=== PATIENT | male | born 1950 | race Caucasian/White ===

== ENCOUNTER → 2019-10-09 | Outpatient (CLI) | payer MEDICARE ==
[2019-10-09 09:57] LABS: Basophils % (A) 1 %; Eosinophils # (A) 0.2 k/uL (0-0.7); Eosinophils % (A) 4 %; HCT 46.2 % (39.0-53.0); HGB 14.7 gm/dL (13.0-17.5); Lymphocytes % (A) 22 %; MCH 30.4 pg (25.0-35.0); MCHC 31.9 g/dL (31.0-37.0); MCV 95.5 fL (80.0-100.0); Mean Platelet Volume 7.6; Monocytes # (A) 0.3 k/uL (0-1.0); Monocytes % (A) 6 %; Neutrophils % (A) 66 %; Platelet Count 192 k/uL (150-450); RBC 4.84 m/uL (4.30-5.90); RDW 12.6 % (11.5-15.5); WBC 4.6 k/uL (3.8-10.6)
[2019-10-09 15:25] LABS: Non-African American GFR(CKD) 75.9 (60.0-200.0)
[2019-10-09 15:58] LABS: Hepatitis B Surface AB- Quant 3.5 mIU/mL; Hepatitis B Surface Antibody Non-Reactive (Non-Reactive); Hepatitis B Surface Antigen Non-Reactive (Non-Reactive)
== END | disposition home or self-care (01) ==
LOC: LABWHC1 09:26
PROVIDERS: ATTEND Dermatology MOHS-Micrographic Surgery
DX: L40.0 Psoriasis vulgaris (principal)
CPT/HCPCS: 36415; 82565; 84450; 84460; 85025; 86480; 86706; 87340

== ENCOUNTER → 2020-06-13 | Outpatient (CLI) | payer MEDICARE ==
[2020-06-14 03:50] LABS: Chol/HDL Ratio 3.53
== END | disposition home or self-care (01) ==
LOC: LABWHC1 14:18
PROVIDERS: ATTEND Internal Medicine Cardiovascular Disease
DX: E78.2 Mixed hyperlipidemia (principal)
CPT/HCPCS: 36415; 80061; 84450; 84460

== ENCOUNTER → 2021-06-22 | Outpatient (CLI) | payer MEDICARE ==
[2021-06-22 15:07] LABS: ALT 22 U/L (10-49); AST 15 U/L (14-35); Chol/HDL Ratio 3.87 Ratio; LDL Cholesterol,Calculated 75.8 mg/dL (0.0-131.0); VLDL Calculation 15.38 mg/dL (5.00-40.00)
== END | disposition home or self-care (01) ==
LOC: LABWHC1 08:27
PROVIDERS: ATTEND Internal Medicine Cardiovascular Disease
DX: E78.2 Mixed hyperlipidemia (principal)
CPT/HCPCS: 36415; 80061; 84450; 84460

== ENCOUNTER → 2021-11-29 | Outpatient (CLI) | payer MEDICARE ==
[2021-11-29 22:31] LABS: Basophils # (A) 0.02 X 10*3/uL (0.00-0.10); Basophils % (A) 0.4 %; Eosinophils # (A) 0.13 X 10*3/uL (0.04-0.35); Eosinophils % (A) 2.5 %; HCT 44.7 % (39.6-50.0); HGB 14.1 g/dL (13.0-17.0); Immature Grans, Automated 0.2 %; Lymphocytes # (A) 1.88 X 10*3/uL (0.90-5.00); Lymphocytes % (A) 36.6 %; MCHC 31.5 g/dL (32.0-37.0); MCV 98.2 fL (80.0-97.0); Mean Platelet Volume 10.4 fL (9.5-12.2); Monocytes # (A) 0.37 X 10*3/uL (0.20-1.00); Monocytes % (A) 7.2 %; NRBC Per 100 WBC 0 /100 WBCS (0.0-0.0); Neutrophils # (A) 2.73 X 10*3/uL (1.80-7.70); Neutrophils % (A) 53.1 %; Platelet Count 217 X 10*3/uL (140-440); RBC 4.55 X 10*6/uL (4.40-5.60); RDW 12.5 % (11.5-14.5); WBC 5.14 X 10*3/uL (4.50-10.00)
[2021-11-29 22:39] LABS: African American GFR (CKD) 89.9 (60.0-200.0); Blood Urea Nitrogen 17.1 mg/dL (9.0-27.0); Non-African American GFR(CKD) 77.6 (60.0-200.0)
== END | disposition home or self-care (01) ==
LOC: LABWHC1 15:44
PROVIDERS: ATTEND Physician Assistant Medical
DX: L40.0 Psoriasis vulgaris (principal)
CPT/HCPCS: 36415; 82565; 84450; 84460; 84520; 85025; 86480

== ENCOUNTER 2022-05-20 14:58 | Emergency (ER) | payer MEDICARE ==
[2022-05-20 15:38] VITALS: TEMP 96.9
[2022-05-20] MEDS ORDERED: LIDOCAINE 1% INJ 10MG/ML (30 ML VIAL-PF) SQ ONE (16:17)
[2022-05-20] MEDS ORDERED: DIPH,PERTUS(ACELL)TETVAC-LF 0.5 ML VIAL IM ONE (16:20)
--- NOTE | 2022-05-20 16:24 | ED ---
Wound/Laceration HPI - General Chief Complaint: Wound/Laceration Stated Complaint: left finger injury Time Seen by Provider: 05/20/22 16:05 Source: patient, RN notes reviewed Mode of arrival: ambulatory Limitations: no limitations - History of Present Illness Initial Comments: This is a [id number] 72-year-old male [facility] inadvertently cutting the distal aspect of his left little finger with a saw earlier this afternoon. Patient denying any significant pain. Denies any functional impairment. Last tetanus is unknown. Injury occurred about 2 hours prior to arrival. Other injuries. No distal paresthesias. No headache, no fever or chills, no changes in vision or hearing, no sore throat or difficulty with speech, no neck pain, no chest pain or shortness of breath, no abdominal pain, no nausea or vomiting, no changes in urination or bowel movements, no numbness or tingling, no extremity pain, no skin rashes or lesions. Past medical, surgical, social, and family history reviewed. - Related Data Allergies Allergy/AdvReac Type Severity Reaction Status Date / Time No Known Allergies Allergy Verified 05/20/22 15:38 Review of Systems ROS Statement: Those systems with pertinent positive or pertinent negative responses have been documented in the HPI. ROS Other: All systems not noted in ROS Statement are negative. Past Medical History Past Medical History: Myocardial Infarction (ID) Additional Past Medical History / Comment(s): HIGH BLOOD PRESSURE. HIGH CHOLESTROL. BLADDER CX History of Any Multi-Drug Resistant Organisms: None Reported Additional Past Surgical History / Comment(s): URINARY SURGERY. ILLEOSTOMY. CARDIAC Past Psychological History: No Psychological Hx Reported Smoking Status: Never smoker Past Alcohol Use History: None Reported Past Drug Use History: None Reported General Exam Limitations: no limitations General appearance: alert, in no apparent distress Head exam: Present: atraumatic, normocephalic, normal inspection Eye exam: Present: normal appearance, EOMI Neck exam: Present: normal inspection Respiratory exam: Present: normal lung sounds bilaterally. Absent: respiratory distress, wheezes, rales, rhonchi, stridor Cardiovascular Exam: Present: regular rate, normal rhythm, normal heart sounds. Absent: systolic murmur, diastolic murmur, rubs, gallop, clicks GI/Abdominal exam: Absent: tenderness Extremities exam: Present: full ROM, normal capillary refill, other (Patient has a small laceration to the flexor aspect of the distal left little finger. Full tendon function.). Absent: tenderness Left Hand Wrist exam: Present: laceration. Absent: tenderness, swelling, abrasion, crepitus, dislocation Neuro motor exam: Present: wrist extension intact, thumb opposition intact, thumb IP flexion intact, thumb adduction intact, fingers 2-5 abduction intact Back exam: Present: normal inspection, full ROM Neurological exam: Present: alert, oriented X3, CN II-XII intact. Absent: motor sensory deficit Psychiatric exam: Present: normal affect, normal mood Skin exam: Present: warm, dry, normal color. Absent: intact Course Vital Signs 05/20/22 15:34 Temperature 96.9 F L Pulse Rate 48 L Respiratory 20 Rate Blood Pressure 120/73 O2 Sat by Pulse 97 Oximetry Procedures - Laceration Laceration #1 Consent Obtained: verbal consent Indication: laceration Site: upper extremity (Left fifth finger) Size (cm): 3 Description: irregular Depth: simple, single layer Anesthetic Used: lidocaine 1% Anesthesia Technique: nerve block (Digital block) Amount (mls): 3 Pre-repair: wound explored, irrigated extensively, deep structures intact Type of Sutures: nylon Size of Sutures: 5-0 Number of Sutures: 5 Technique: simple, interrupted Medical Decision Making - Medical Decision Making Patient counseled on signs and symptoms of infection. Counseled on wound care. Counseled on return of all parameters. Voice understanding. Tetanus was updated. Patient was told to return to the ER for any signs or symptoms worsen. Told to return immediately if any other problems arise. All questions answered. Treatment plan discussed. Patient in agreement Every effort has been made to ensure accuracy of this dictation. However, due to the limitations of electronic medical records and dictation devices, errors in charting still occur. Supervising Dr. Waters - Radiology Data Radiology results: report reviewed, image reviewed Plain film x-ray of the left fifth finger interpreted by me reveals no evidence of fracture. No foreign body. No soft tissue change. Concur with radiology interpretation. Disposition Clinical Impression: Laceration of left little finger without damage to nail Disposition: HOME SELF-CARE Condition: Good Instructions (If sedation given, give patient instructions): Care For Your Stitches (ED), Laceration (ED) Additional Instructions: Wash the wound daily with warm soap and water. Apply thin layer of Neosporin or triple antibiotic ointment. Keep covered with a Band-Aid or sterile bandage. Suture removal in 10 days. Follow-up with your regular physician as directed. Return to the ER immediately if any symptoms worsen, new symptoms arise, or any other problems develop. Is patient prescribed a controlled substance at d/c from ED?: No Referrals: Jeramy Ny MD [Primary Care Provider] - 1-2 days Time of Disposition: 17:31
--- NOTE | 2022-05-20 16:47 | XR ---
EXAMINATION TYPE: XR finger LT DATE OF EXAM: 05/20/2022 COMPARISON: NONE HISTORY: Laceration TECHNIQUE: 3 views FINDINGS: There is some spurring at the IP joints of the little finger. There is no fracture nor disl ocation. No sizable foreign body. The soft tissue swelling anterior to the distal phalanx. IMPRESSION: Soft tissue swelling. No fracture seen.
[2022-05-20] MEDS ORDERED: BACITRACIN OINT 1 EACH PACKET TOPICAL ONE (17:30)
[2022-05-20 18:07] VITALS: BP 113/64; PULSE 51; RESP 15
== END 2022-05-20 18:07 | disposition home or self-care (01) ==
LOC: EC 14:58
DX: S61.217A Laceration without foreign body of left little finger without damage to nail, initial encounter (principal); I25.2 Old myocardial infarction; Z23 Encounter for immunization; W26.9XXA Contact with unspecified sharp object(s), initial encounter
CPT/HCPCS: 73140; 90715; 12032; 99283; 90471; J2001

== ENCOUNTER → 2023-01-15 | Outpatient (CLI) | payer MEDICARE ==
[2023-01-15 15:35] LABS: ALT 17 U/L (10-49); AST 20 U/L (14-35)
[2023-01-15 16:14] LABS: HGB 14.8 d/dL (12.0-15.0); MCHC 31.5 d/dL (32.0-37.0); MCV 101.7 FL (80.0-97.0); NRBC Per 100 WBC 0 X 10*3/uL (0.00-0.01); Platelet Count 179 X 10*3/uL (140-440); RBC 4.62 X 10*6/uL (4.40-5.60); RDW 13.2 % (11.5-14.5)
[2023-01-15 16:15] LABS: Basophils # (A) 0.04 X 10*3/uL (0.00-0.10); Basophils % (A) 0.9 %; Eosinophils # (A) 0.11 X 10*3/uL (0.04-0.35); Eosinophils % (A) 2.4 %; Lymphocytes # (A) 1.39 X 10*3/uL (0.90-5.00); Lymphocytes % (A) 30.9 %; Monocytes # (A) 0.37 X 10*3/uL (0.20-1.00); Monocytes % (A) 8.2 %; Neutrophils # (A) 2.58 X 10*3/uL (1.80-7.70); Neutrophils % (A) 57.4 %
== END | disposition home or self-care (01) ==
LOC: LABWHC1 11:16
PROVIDERS: ATTEND Dermatology MOHS-Micrographic Surgery
DX: L40.0 Psoriasis vulgaris (principal)
CPT/HCPCS: 36415; 82565; 84450; 84460; 85025; 86480

== ENCOUNTER → 2023-12-17 | Outpatient (CLI) | payer MEDICARE ==
[2023-12-17 14:22] LABS: Basophils # (A) 0.02 X 10*3/uL (0.00-0.10); Basophils % (A) 0.4 %; Eosinophils # (A) 0.15 X 10*3/uL (0.04-0.35); Eosinophils % (A) 3.1 %; HGB 13.9 g/dL (13.0-17.0); Lymphocytes # (A) 1.56 X 10*3/uL (0.90-5.00); Lymphocytes % (A) 32.5 %; MCHC 32.3 g/dL (32.0-37.0); MCV 99.1 FL (80.0-97.0); Mean Platelet Volume 10.8 FL (9.5-12.2); Monocytes # (A) 0.38 X 10*3/uL (0.20-1.00); Monocytes % (A) 7.9 %; NRBC Per 100 WBC 0 X 10*3/uL (0.00-0.01); Neutrophils # (A) 2.68 X 10*3/uL (1.80-7.70); Neutrophils % (A) 55.9 %; Platelet Count 182 X 10*3/uL (140-440); RBC 4.34 X 10*6/uL (4.40-5.60); RDW 13.3 % (11.5-14.5)
[2023-12-17 15:18] LABS: ALT 17 U/L (10-49); AST 17 U/L (14-35); Chol/HDL Ratio 3.44 Ratio; LDL Cholesterol,Calculated 92.9 mg/dL (0.0-131.0)
== END | disposition home or self-care (01) ==
LOC: LABWHC1 10:20
PROVIDERS: ATTEND Internal Medicine Cardiovascular Disease
DX: L40.0 Psoriasis vulgaris (principal); E78.2 Mixed hyperlipidemia; Z79.899 Other long term (current) drug therapy
CPT/HCPCS: 36415; 80061; 82565; 84450; 84460; 85025; 86480

== ENCOUNTER → 2023-12-24 | Outpatient (CLI) | payer MEDICARE ==
--- NOTE | 2023-12-24 15:56 | NM ---
EXAMINATION TYPE: NM bone scan whole body DATE OF EXAM: 12/24/2023 1:45 PM CLINICAL INDICATION:Male, 73 years old with history of M54.6 pain thoracic spine; COMPARISON: 11/29/2023. TECHNIQUE: Intravenous administration 22.2 mCi Tc 99m MDP followed by multiple scintigraphic images o f the appendicular and axial skeleton. Images acquired 3 hours post injection. FINDINGS: No abnormal uptake is identified within the appendicular or axial skeleton to suggest metastatic dise ase. Focal uptake at the level of T9 left pedicle likely on the basis of degeneration. There is increased uptake within the bilateral shoulder, sternoclavicular, and sacroiliac joints consistent with degene rative changes. No other photopenic areas or areas of increased activity are identified. Physiologic radiotracer activity is demonstrated in the kidneys and bladder. IMPRESSION: 1. Focal uptake within the midthoracic spine on the right side near of the vertebral body at T9 most suggestive of degeneration. Consider further evaluation with MRI. 2. No evidence for no suspicious uptake for malignancy.
== END | disposition home or self-care (01) ==
LOC: RADNMMAIN 07:37
PROVIDERS: ATTEND Physical Medicine & Rehabilitation
DX: S22.050S Wedge compression fracture of T5-T6 vertebra, sequela (principal); S22.060S Wedge compression fracture of T7-T8 vertebra, sequela; S22.080S Wedge compression fracture of T11-T12 vertebra, sequela; M54.14 Radiculopathy, thoracic region; M47.814 Spondylosis without myelopathy or radiculopathy, thoracic region; M41.24 Other idiopathic scoliosis, thoracic region
CPT/HCPCS: 78306; A9503

== ENCOUNTER → 2024-12-16 | Outpatient (CLI) | payer MEDICARE | END | disposition home or self-care (01) | LOC: LABWHC1 11:32 | PROVIDERS: ATTEND Dermatology | DX: L40.0 Psoriasis vulgaris (principal); Z79.899 Other long term (current) drug therapy | CPT/HCPCS: 36415; 86480 ==

== ENCOUNTER → 2024-12-16 | Outpatient (CLI) | payer MEDICARE ==
[2024-12-16 10:46] VITALS: BP 112/70; PULSE 65; RESP 16; TEMP 97.3
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
== END ==
LOC: PNWHC3 10:12
PROVIDERS: ATTEND Specialist
DX: M47.26 Other spondylosis with radiculopathy, lumbar region (principal); M47.817 Spondylosis without myelopathy or radiculopathy, lumbosacral region; M48.061 Spinal stenosis, lumbar region without neurogenic claudication; M48.07 Spinal stenosis, lumbosacral region
CPT/HCPCS: 99211

== ENCOUNTER 2025-01-12 09:19 | Day surgery (SDC) | payer MEDICARE ==
[2025-01-11 13:59] VITALS: BMI 31.3
[~2025-01-12 09:19] MED LIST: LACTATED RINGERS 1,000 ML IV SCH
[2025-01-12 10:27] VITALS: TEMP 97.4
[2025-01-12] MEDS: ALPRAZolam 0.25 MG TAB PO STA (10:44)
[2025-01-12] MEDS ORDERED: methylPREDNISolone ACETATE 40 MG/ML 1 ML VIAL ONE (11:52)
[2025-01-12] MEDS ORDERED: IOPAMIDOL M200 10 ML VIAL ONE (11:52)
--- NOTE | 2025-01-12 11:59 | P.PCN ---
Date of Procedure: 01/12/25 Procedure(s) Performed: PREOPERATIVE DIAGNOSIS: 1- Lumbar Degenerative Disc Diseases 2-Lumbar spondylosis with Facet arthropathy without myelopathy. 3-lumbar radiculopathy POSTOPERATIVE DIAGNOSIS: 1-lumbar degenerative disc disease. 2-lumbar spondylosis with facet arthropathy without myelopathy. 3-lumbar radiculopathy PROCEDURE 1. Lumbar epidural steroid injection under fluoroscopic guidance at the L4-5 level. (Fluoroscopy imaging was available in radiology department) 2. Lumbar epidurogram. ANESTHESIA: Lidocaine 1% 3 and then only. EBL: Minimal PROCEDURE INDICATION: The patient with low back pain and radiculitis symptoms unresponsive to conservative treatment. Fluoroscopy was used to optimize visualization of the needle placement and to maximize safety. PROCEDURE DESCRIPTION / TECHNIQUE: The patient was seen and identified in the preoperative area. Risks, benefits, complications including but not limited to infections ,bleeding ,allergic reaction to the medications ,nerve damage and not complete pain releife , and alternatives were discussed with the patient. The patient agreed to proceed with the procedure and signed the consent, and vital signs were stable. Patient was taken to the OR and time out was completed. The patient was placed in the prone position on procedure table and a pillow was placed under the abdomen to reduce lumbar lordosis. The lumbosacral area was prepped and draped in the usual sterile fashion.ere closely monitored during the procedure. Vital signs was monitered during the entire procedure. Using anterior-posterior fluoroscopy, the L4-5 interlaminar space was identified and the skin over this site was marked and then infiltrated with 1% lidocaine subcutaneously. Subsequently, a 20-gauge Tuohy epidural needle was inserted and advanced toward the epidural space using the ``Loss of resistance technique and guided by AP and lateral fluoroscopy. The correct needle position in the epidural space was verified with the injection of 2 mL of the water soluble contrast dye Isovue 200 contrast and observing an excellent epidurogram with th e epidural spread of the dye, after negative aspiration for blood and CSF and in the absence of paresthesias. Again after negative aspiration, a 6 ml mixture containing 40 mg of Depo-medrol ( Preservetive Free ), and 2 ml of preservative free Normal Saline, and 2 ml of preservative free lidocaine 1% solution was injected and a washout of epidurogram was seen. Needle was withdrawn intact, skin was cleansed, and bandages were applied. COMPLICATIONS: None DISPOSITION / PLANS: The patient was placed in a supine position and transferred to the recovery area in a stable condition for observation. There was no evidence of lower extremity motor or sensory deficit after the procedure. Patient was discharged from the recovery room after meeting discharge criteria. Home discharge instructions were given to the patient by the staff. The patient was reexamined prior to discharge. The patient will schedule a follow up in the clinic in 2-4 weeks.
[2025-01-12 12:08] VITALS: RESP 16
--- NOTE | 2025-01-12 12:16 | FL ---
EXAMINATION TYPE: FL guided pain mgmt statistic DATE OF EXAM: 01/12/2025 12:06 PM COMPARISON: Pre Operative Images if available both CT/MRI or plain film CLINICAL INDICATION: Male, 75 years old with history of LESI; TECHNIQUE: FL guided pain mgmt statistic, multiple fluoroscopic images provided for procedure. DAP: 0.28124 mGym2 Gycm2 uGym2 cGycm2 or equivalent. FINDINGS: Fluoroscopic images during injection for pain management demonstrate multilevel degeneration changes throughout the spine. No evidence for fracture. No acute process identified. IMPRESSION: 1. No evidence for intraoperative complication. 2. Please see the operative/procedural note for further details. [facility], , 01/12/2025 12:14 PM
[2025-01-12 12:32] VITALS: BP 100/62; PULSE 47
== END 2025-01-12 12:48 | disposition home or self-care (01) ==
LOC: ORPAIN 09:19
PROVIDERS: ATTEND Specialist
DX: M51.16 Intervertebral disc disorders with radiculopathy, lumbar region (principal); M47.26 Other spondylosis with radiculopathy, lumbar region; Z79.82 Long term (current) use of aspirin
CPT/HCPCS: 62323; Q9966; J1010